=== PATIENT | male | born 1955 | race Caucasian/White ===

== ENCOUNTER 2021-11-08 15:52 | Emergency (ER) | payer OTHER ==
[~2021-11-08] VITALS: Ht 177.8 cm; Wt 88.2 kg
[2021-11-08 19:18] VITALS: BP 162/78
== END 2021-11-08 19:19 | disposition home or self-care (01) ==
LOC: M ED 15:52
DX: M71.21 Synovial cyst of popliteal space [Baker], right knee (principal); M79.89 Other specified soft tissue disorders